=== PATIENT | female | born 1945 | race Hispanic/Latino ===

== ENCOUNTER 2018-06-20 20:38 | Emergency (ER) | payer MEDICARE, BC ==
[~2018-06-20] VITALS: Ht 170.2 cm; Wt 91.6 kg
[2018-06-20] MEDS ORDERED: AMLO25TA PO (20:53)
[2018-06-20] MEDS ORDERED: JANU50TA25 PO (20:53)
[2018-06-20] MEDS ORDERED: XARE20TA PO (20:53)
[2018-06-20] MEDS ORDERED: CARV25TA PO (20:53)
[2018-06-20] MEDS ORDERED: HYDR500C3 PO (20:53)
[2018-06-20 21:26] LABS: HEMATOCRIT 46.3 % (36.0-47.0); HEMOGLOBIN 15.3 g/dl (12.0-15.5); MEAN CORPUSCULAR HEMOGLOBIN 36.6 pg (27.0-33.0); MEAN CORPUSCULAR VOLUME 110.8 fl (80.0-96.0); PLATELET COUNT, AUTOMATED 190 10^3/uL (150-450); RED BLOOD COUNT 4.18 10^6/uL (4.00-5.40); WHITE BLOOD COUNT 15.8 10^3/uL (4.0-10.0)
[2018-06-20 21:49] LABS: CALCIUM LEVEL 9.8 MG/DL (8.8-10.2); CREATININE FOR GFR 1.08 MG/DL (0.55-1.30); GLOMERULAR FILTRATION RATE 53.2 (>39); POTASSIUM SERUM 3.9 MEQ/L (3.5-5.1)
--- NOTE | 2018-06-20 22:08 | REPVR ---
EXAM: CT Cervical Spine Without Contrast EXAM DATE/TIME: 06/20/18 (8:55pm) CLINICAL HISTORY: 73 year old female. Recent fall. Initial encounter. Blunt trauma. Blood thinners. TECHNIQUE: Imaging protocol: Axial computed tomography images of the cervical spine without intravenous contrast. Coronal and sagittal reformatted images were created and reviewed. Radiation optimization: All CT scans at this facility use at least one of these dose optimization techniques: automated exposure control; mA and/or kV adjustment per patient size (includes targeted exams where dose is matched to clinical indication); or iterative reconstruction. COMPARISON: No relevant prior studies available FINDINGS: Vertebrae: No acute fracture. Normal alignment. Discs/Spinal canal: Moderate degenerative changes in the mid and lower cervical spine. Moderate disc space narrowing at the C4-C5, C5-C6, and C6-C7 levels. No significant spinal stenosis. Soft tissues: Unremarkable. Lungs: Lung apices are normal. IMPRESSION: No acute findings. Moderate multilevel degenerative changes. Electronically signed by: Regla Dexter On 06/20/2018 22:08:08 PM
--- NOTE | 2018-06-20 22:13 | REPVR ---
EXAM: CT Head Without Contrast EXAM DATE/TIME: 06/20/18 (9:12pm) CLINICAL HISTORY: 73 year old female. Recent fall. TECHNIQUE: Imaging protocol: Axial computed tomography images of the head without contrast. Radiation optimization: All CT scans at this facility use at least one of these dose optimization techniques: automated exposure control; mA and/or kV adjustment per patient size (includes targeted exams where dose is matched to clinical indication); or iterative reconstruction. COMPARISON: No relevant prior studies available FINDINGS: Brain: No acute hemorrhage. No cerebral edema. Age-appropriate atrophic changes. Ventricles: Normal. No ventriculomegaly. Bones/joints: Unremarkable. No acute fracture. Sinuses: Visualized sinuses are unremarkable. No acute sinusitis. Mastoid air cells: Visualized mastoid air cells are unremarkable. No mastoid effusion. Soft tissues: Unremarkable. IMPRESSION: No acute intracranial pathology is appreciated. Electronically signed by: Regla Dexter On 06/20/2018 22:13:08 PM
[2018-06-20] MEDS ORDERED: ACET1TAB55 PO (23:13)
[2018-06-20 23:24] VITALS: BP 169/83
--- NOTE | 2018-06-21 07:21 | REP ---
Right shoulder three views : There is no fracture or dislocation. Mineralization and joint spaces are normal. There are no calcifications or foreign bodies. Impression: Negative right shoulder . Electronically Signed by Raúl Fox MD 06/21/2018 07:13 A
== END 2018-06-20 23:30 | disposition home or self-care (01) ==
LOC: M ED 20:38
DX: S43.101A Unspecified dislocation of right acromioclavicular joint, initial encounter (principal); S09.90XA Unspecified injury of head, initial encounter; W10.9XXA Fall (on) (from) unspecified stairs and steps, initial encounter; Y92.22 Religious institution as the place of occurrence of the external cause; Y93.89 Activity, other specified; Y99.9 Unspecified external cause status; I10 Essential (primary) hypertension; D69.6 Thrombocytopenia, unspecified; Z86.718 Personal history of other venous thrombosis and embolism; M50.30 Other cervical disc degeneration, unspecified cervical region; Z79.02 Long term (current) use of antithrombotics/antiplatelets; Z79.899 Other long term (current) drug therapy; Z91.89 Other specified personal risk factors, not elsewhere classified